=== PATIENT | female | born 1985 | race Caucasian/White ===

== ENCOUNTER 2019-02-15 13:26 | Inpatient (IN) ==
[2019-02-15] MEDS ORDERED: LORazepam 1 MG TAB PO STA (13:51)
[2019-02-15 14:14] LABS: Basophils # (auto) 0.02 K/uL (0-0.2); Basophils % (auto) 0.2 %; Eosinophils # (auto) 0.05 K/uL (0-0.5); Eosinophils % (auto) 0.6 %; Hematocrit (blood only) 37.8 % (37-47); Hemoglobin 12.7 g/dL (12.0-16.0); Immature Granulocytes # (auto) 0.02 K/uL (0.00-0.02); Immature Granulocytes % (auto) 0.2 %; Lymphocytes # (auto) 1.49 K/uL (1.2-3.4); Lymphocytes % (auto) 18.5 %; Mean Corpuscular Hgb Conc 33.6 g/dL (32-36); Mean Corpuscular Volume 96.9 fL (80-100); Mean Platelet Volume 10.5 fL (7.4-10.4); Monocytes # (auto) 0.57 K/uL (0.11-0.59); Monocytes % (auto) 7.1 %; Neutrophils # (auto) 5.92 K/uL (1.4-6.5); Neutrophils % (auto) 73.4 %; Platelet Count 227 K/uL (130-400); RDW Coefficient of Variation 13.7 % (11.5-14.5); RDW Standard Deviation 48.5 fL (36.4-46.3); White Blood Count 8.07 K/uL (4.8-10.8)
[2019-02-15 14:30] LABS: Albumin Level 3.9 gm/dl (3.4-5.0); BUN Creatinine Ratio 22.5 (10-20); Calcium 9.7 mg/dl (8.5-10.1); Creatinine Clr Calc Pharmacy 109.6 ml/min; Est GFR (African American) 133.5; Est GFR (Non-African American) 115.2; Potassium 3.7 mmol/L (3.5-5.1)
[2019-02-15 14:39] LABS: Pregnancy Test, Serum Negative (Negative)
[2019-02-15 14:40] LABS: Albumin Globulin Ratio 1.2 (0.9-2); Bilirubin,Total 0.3 mg/dl (0.2-1); Globulin 3.2 gm/dl (2.5-4.0); Total Protein 7.1 gm/dl (6.4-8.2)
[2019-02-15 14:41] LABS: Appearance Urine Turbid (Clear); Bacteria Urine Automated Negative (Negative); Bilirubin Urine Negative (Negative); Blood Urine Negative (Negative); Color Urine Dark Yellow; Epithelial Cell Urine Auto >30 /lpf (0-5); Glucose Urine UA Negative (Negative); Ketones Urine Trace (Negative); Leukocyte Esterase Urine Negative (Negative); Nitrite Urine Negative (Negative); Protein Urine Negative (Negative); Specific Gravity Urine 1.023 (1.000-1.030); Urobilinogen Urine Negative (Negative)
[2019-02-15 14:42] LABS: Acetaminophen < 2 ug/ml (10-30); Salicylate < 1.7 mg/dl (2.8-20)
[2019-02-15 14:59] LABS: RBC Urine Automated 0-4 /hpf (0-4)
[2019-02-15 15:06] LABS: Amphetamines+Metham, Urine Neg (Neg); Barbiturates, Urine Neg (Neg); Benzodiazepine, Urine Neg (Neg); Cocaine, Urine Neg (Neg); MDMA (Ecstacy), Urine Neg (Neg); Methadone, Urine Neg (Neg); Opiate, Urine Neg (Neg); Phencyclidine, Urine Neg (Neg)
--- NOTE | 2019-02-15 15:20 | Emergency Department Note ---
Entered by Pilar Gan acting as a scribe for History of Present Illness General Chief complaint: Mental Health Evaluation Stated complaint: MHMR,NEEDS TO SEE SOMEONE IN MENTAL Source: patient Mode of arrival: ambulatory Limitations: no limitations History of Present Illness Onset (ago): day(s) 3 Location: head Radiation: non-radiation Pain Consistency: + constant Maximum Pain Intensity: 8 Relieved By: + none Exacerbated By: + none Treatments prior to arrival: none The patient is a 33 year old female who presents to the ED with complaints of needing a mental health evaluation. She states that she has experienced worsening depression recently. She states she has experienced racing thoughts and a "mental fog", which prompted her to come here to the ED. The patient admits to a history of schizoaffective disorder and bipolar 1. She admits to a history of cutting and states she has been treated inpatient at a mental health facility several times in the past. She is a current smoker. She notes she does hear voices. Home Medications Home Medications Medication Instructions Recorded Confirmed Type aripiprazole [Abilify] 10 mg PO DAILY 02/15/19 02/15/19 History clozapine [Clozaril] 200 mg PO BID 02/15/19 02/15/19 History mirtazapine [Remeron] 15 mg PO HS 02/15/19 02/15/19 History Allergies Allergy/AdvReac Type Severity Reaction Status Date / Time azithromycin [From Zithromax] Allergy Mild Rash Verified 02/15/19 14:06 mivacurium AdvReac Mild YEAST Unverified 09/25/09 04:15 INFECTION Past Med/Surg History Medical History Bipolar 1 disorder Schizoaffective disorder Social History Preferred Language: Moroccan Communication Ability: Effective Social Worker Clinical Required: No Beliefs That Will Affect Care: None Feels Safe at Home: Yes Smoking Status: Current every day smoker Tobacco Type: cigarettes Review of Systems See HPI for pertinent positives & negatives. and A total of 10 systems reviewed and were otherwise negative Physical Exam Vital Signs Vital Signs - 24 hr 02/15/19 13:30 Temperature 36.8 C Temperature Source Oral Sepsis Recent Fever Within 48 Hours No Sepsis Action Taken by Nursing No Action Required Pulse Rhythm Regular Pulse Strength Normal Respiratory Rate 16 Respiratory Effort / Characteristics Non-Labored Respiratory Depth Normal Respiratory Pattern Regular Blood Pressure 114/74 Blood Pressure Mean 87 Blood Pressure Position Sitting Pulse Oximetry 100 Oxygen Delivery Method Room Air GENERAL: Patient is awake, alert, somewhat anxious appearing and guarded. EYES: The conjunctivae are clear. The pupils are round and reactive. EARS, NOSE, MOUTH AND THROAT: The nose is without any evidence of any deformity. Mucous membranes are moist.Tongue is midline NECK: The neck is nontender and supple. RESPIRATORY: Normal respiratory effort is noted. There is no evidence of wheezing rhonchi or rales to auscultation. CARDIOVASCULAR: Regular rate and rhythm noted. There no murmurs rubs or gallops normal S1 normal S2 GASTROINTESTINAL: The abdomen is soft. Bowel sounds are present in all quadrants. Abdomen is nontender. MUSCULOSKELETAL/EXTREMITIES: There is no evidence of gross deformity. Full range of motion is noted in the hips and shoulders. SKIN: There is no obvious evidence of any rash. There are no petechiae, pallor or cyanosis noted. NEUROLOGIC: Patient is awake alert and oriented x3. PSYCHIATRIC: The patient is anxious appearing, makes poor eye contact for most of the evaluation, very vague with her description of her suicidal ideation. Course 1346: The patient was evaluated in room A5 and a complete history and physical were performed. 1615: Psychiatric Case Management informed me the patient will be further evaluated upstairs by [facility]. Administered Medications Acetaminophen (Tylenol) 650 mg PO Q4H PRN PRN Reason: Headache or Minor Fever Stop: 03/17/19 16:04 Last Admin: 02/15/19 17:04 Dose: 650 mg Documented by: [id number] [facility] Stop: 03/18/19 08:59 Last Admin: 02/16/19 08:17 Dose: 10 mg Documented by: [id number] Mirtazapine (Remeron) 15 mg PO [facility] Stop: 03/17/19 20:59 Last Admin: 02/15/19 21:27 Dose: 15 mg Documented by: [id number] Nicotine (Nicoderm Cq) [facility] Stop: 03/17/19 16:14 Last Admin: 02/16/19 08:17 Dose: 21 mg Documented by: [id number] Admin: 02/15/19 18:15 Dose: Not Given Documented by: [id number] Paliperidone (Invega) 6 mg PO DAILY MIKAELA Stop: 03/18/19 08:59 Last Admin: 02/16/19 08:17 Dose: 6 mg Documented by: [id number] Trihexyphenidyl HCl (Trihexyphenidyl Hcl) 5 mg PO QAM MIKAELA Stop: 03/18/19 08:59 Last Admin: 02/16/19 08:17 Dose: 5 mg Documented by: [id number] Discontinued Medications Diphenhydramine HCl (Benadryl Capsule) 25 mg PO NOW ONE Stop: 02/15/19 16:58 Last Admin: 02/15/19 18:13 Dose: 25 mg Documented by: [id number] Lorazepam (Ativan) 0.5 mg PO NOW STA Stop: 02/15/19 13:52 Last Admin: 02/15/19 14:03 Dose: 0.5 mg Documented by: [id number] Paliperidone (Invega) 1.5 mg PO NOW ONE Stop: 02/15/19 16:56 Last Admin: 02/15/19 18:13 Dose: 1.5 mg Documented by: [id number] Medical Decision Making Differential Diagnosis Differential: Mood Disorder, Overdose, Infectious, Electrolyte Abnormality, Cardiac, Hepatic, Endocrine, Toxicologic, Neurologic, amongst other pathologies Entertained. Medical Records Attestation: I reviewed the patient's medical records. Home Medications Current Medication List: was personally reviewed by me Laboratory Data Attestation: I reviewed the patient's lab results. Result diagrams: 02/15/19 13:59 02/15/19 13:59 Lab Results 02/15/19 02/15/19 02/15/19 Range/Units 13:59 13:59 13:59 WBC 8.07 (4.8-10.8) K/uL RBC 3.90 L (4.2-5.4) M/uL Hgb 12.7 (12.0-16.0) g/dL Hct 37.8 (37-47) % MCV 96.9 (80-100) fL MCH 32.6 (25-34) pg MCHC 33.6 (32-36) g/dL RDW Std Deviation 48.5 H (36.4-46.3) fL RDW Coeff of Alesha 13.7 (11.5-14.5) % Plt Count 227 (130-400) K/uL MPV 10.5 H (7.4-10.4) fL Immature Gran % (Auto) 0.2 % Neut % (Auto) 73.4 % Lymph % (Auto) 18.5 % Adams % (Auto) 7.1 % Eos % (Auto) 0.6 % Baso % (Auto) 0.2 % Immature Gran # (Auto) 0.02 (0.00-0.02) K/uL Neut # (Auto) 5.92 (1.4-6.5) K/uL Lymph # (Auto) 1.49 (1.2-3.4) K/uL Adams # (Auto) 0.57 (0.11-0.59) K/uL Eos # (Auto) 0.05 (0-0.5) K/uL Baso # (Auto) 0.02 (0-0.2) K/uL Sodium 143 (136-145) mmol/L Potassium 3.7 (3.5-5.1) mmol/L Chloride 107 (98-107) mmol/L Carbon Dioxide 29 (21-32) mmol/L Anion Gap 7.0 (3-11) BUN 16 (7-18) mg/dl Creatinine 0.69 (0.6-1.2) mg/dl Est Cr Clr Drug Dosing 109.6 ml/min Est GFR ( Amer) 133.5 Est GFR (Non-Af Amer) 115.2 BUN/Creatinine Ratio 22.5 H (10-20) Glucose 94 (70-99) mg/dl Calcium 9.7 (8.5-10.1) mg/dl Total Bilirubin 0.3 (0.2-1) mg/dl AST 13 L (15-37) U/L ALT 36 (12-78) U/L Alkaline Phosphatase 80 (45-117) U/L Total Protein 7.1 (6.4-8.2) gm/dl Albumin 3.9 (3.4-5.0) gm/dl Globulin 3.2 (2.5-4.0) gm/dl Albumin/Globulin Ratio 1.2 (0.9-2) TSH 0.679 (0.300-4.500) uIu/ml HCG, Qual (Negative) Urine Color Urine Appearance (Clear) Urine pH (4.5-7.5) Ur Specific [place] (1.000-1.030) Urine Protein (Negative) Urine Glucose (UA) (Negative) Urine Ketones (Negative) Urine Blood (Negative) Urine Nitrite (Negative) Urine Bilirubin (Negative) Urine Urobilinogen (Negative) Ur Leukocyte Esterase (Negative) Urine WBC (Auto) (0-5) /hpf Urine RBC (Auto) (0-4) /hpf U Hyaline Cast (Auto) (0-5) /lpf U Epithel Cells (Auto) (0-5) /lpf Urine Bacteria (Auto) (Negative) Salicylates < 1.7 L (2.8-20) mg/dl Urine Opiates Screen (Neg) Ur Methadone, Qual (Neg) Acetaminophen < 2 L (10-30) ug/ml Urine Barbiturates (Neg) Ur Phencyclidine (PCP) (Neg) U Amphetamin/Meth Scrn (Neg) MDMA (Ecstasy) Screen (Neg) U Benzodiazepines Scrn (Neg) Ur Cocaine Metabolite (Neg) U Marijuana (THC) Screen (Neg) Ethyl Alcohol mg/dL (0-3) mg/dl 02/15/19 02/15/19 02/15/19 Range/Units 13:59 13:59 14:15 WBC (4.8-10.8) K/uL RBC (4.2-5.4) M/uL Hgb (12.0-16.0) g/dL Hct (37-47) % MCV (80-100) fL MCH (25-34) pg MCHC (32-36) g/dL RDW Std Deviation (36.4-46.3) fL RDW Coeff of Alesha (11.5-14.5) % Plt Count (130-400) K/uL MPV (7.4-10.4) fL Immature Gran % (Auto) % Neut % (Auto) % Lymph % (Auto) % Adams % (Auto) % Eos % (Auto) % Baso % (Auto) % Immature Gran # (Auto) (0.00-0.02) K/uL Neut # (Auto) (1.4-6.5) K/uL Lymph # (Auto) (1.2-3.4) K/uL Adams # (Auto) (0.11-0.59) K/uL Eos # (Auto) (0-0.5) K/uL Baso # (Auto) (0-0.2) K/uL Sodium (136-145) mmol/L Potassium (3.5-5.1) mmol/L Chloride (98-107) mmol/L Carbon Dioxide (21-32) mmol/L Anion Gap (3-11) BUN (7-18) mg/dl Creatinine (0.6-1.2) mg/dl Est Cr Clr Drug Dosing ml/min Est GFR ( Amer) Est GFR (Non-Af Amer) BUN/Creatinine Ratio (10-20) Glucose (70-99) mg/dl Calcium (8.5-10.1) mg/dl Total Bilirubin (0.2-1) mg/dl AST (15-37) U/L ALT (12-78) U/L Alkaline Phosphatase (45-117) U/L Total Protein (6.4-8.2) gm/dl Albumin (3.4-5.0) gm/dl Globulin (2.5-4.0) gm/dl Albumin/Globulin Ratio (0.9-2) TSH (0.300-4.500) uIu/ml HCG, Qual Negative (Negative) Urine Color Urine Appearance (Clear) Urine pH (4.5-7.5) Ur Specific [place] (1.000-1.030) Urine Protein (Negative) Urine Glucose (UA) (Negative) Urine Ketones (Negative) Urine Blood (Negative) Urine Nitrite (Negative) Urine Bilirubin (Negative) Urine Urobilinogen (Negative) Ur Leukocyte Esterase (Negative) Urine WBC (Auto) (0-5) /hpf Urine RBC (Auto) (0-4) /hpf U Hyaline Cast (Auto) (0-5) /lpf U Epithel Cells (Auto) (0-5) /lpf Urine Bacteria (Auto) (Negative) Salicylates (2.8-20) mg/dl Urine Opiates Screen Neg (Neg) Ur Methadone, Qual Neg (Neg) Acetaminophen (10-30) ug/ml Urine Barbiturates Neg (Neg) Ur Phencyclidine (PCP) Neg (Neg) U Amphetamin/Meth Scrn Neg (Neg) MDMA (Ecstasy) Screen Neg (Neg) U Benzodiazepines Scrn Neg (Neg) Ur Cocaine Metabolite Neg (Neg) U Marijuana (THC) Screen Neg (Neg) Ethyl Alcohol mg/dL < 3.0 (0-3) mg/dl 02/15/19 Range/Units 14:15 WBC (4.8-10.8) K/uL RBC (4.2-5.4) M/uL Hgb (12.0-16.0) g/dL Hct (37-47) % MCV (80-100) fL MCH (25-34) pg MCHC (32-36) g/dL RDW Std Deviation (36.4-46.3) fL RDW Coeff of Alesha (11.5-14.5) % Plt Count (130-400) K/uL MPV (7.4-10.4) fL Immature Gran % (Auto) % Neut % (Auto) % Lymph % (Auto) % Adams % (Auto) % Eos % (Auto) % Baso % (Auto) % Immature Gran # (Auto) (0.00-0.02) K/uL Neut # (Auto) (1.4-6.5) K/uL Lymph # (Auto) (1.2-3.4) K/uL Adams # (Auto) (0.11-0.59) K/uL Eos # (Auto) (0-0.5) K/uL Baso # (Auto) (0-0.2) K/uL Sodium (136-145) mmol/L Potassium (3.5-5.1) mmol/L Chloride (98-107) mmol/L Carbon Dioxide (21-32) mmol/L Anion Gap (3-11) BUN (7-18) mg/dl Creatinine (0.6-1.2) mg/dl Est Cr Clr Drug Dosing ml/min Est GFR ( Amer) Est GFR (Non-Af Amer) BUN/Creatinine Ratio (10-20) Glucose (70-99) mg/dl Calcium (8.5-10.1) mg/dl Total Bilirubin (0.2-1) mg/dl AST (15-37) U/L ALT (12-78) U/L Alkaline Phosphatase (45-117) U/L Total Protein (6.4-8.2) gm/dl Albumin (3.4-5.0) gm/dl Globulin (2.5-4.0) gm/dl Albumin/Globulin Ratio (0.9-2) TSH (0.300-4.500) uIu/ml HCG, Qual (Negative) Urine Color Dark Yellow Urine Appearance Turbid A (Clear) Urine pH 7.0 (4.5-7.5) Ur Specific [place] 1.023 (1.000-1.030) Urine Protein Negative (Negative) Urine Glucose (UA) Negative (Negative) Urine Ketones Trace H (Negative) Urine Blood Negative (Negative) Urine Nitrite Negative (Negative) Urine Bilirubin Negative (Negative) Urine Urobilinogen Negative (Negative) Ur Leukocyte Esterase Negative (Negative) Urine WBC (Auto) 1-5 (0-5) /hpf Urine RBC (Auto) 0-4 (0-4) /hpf U Hyaline Cast (Auto) 5-10 H (0-5) /lpf U Epithel Cells (Auto) >30 H (0-5) /lpf Urine Bacteria (Auto) Negative (Negative) Salicylates (2.8-20) mg/dl Urine Opiates Screen (Neg) Ur Methadone, Qual (Neg) Acetaminophen (10-30) ug/ml Urine Barbiturates (Neg) Ur Phencyclidine (PCP) (Neg) U Amphetamin/Meth Scrn (Neg) MDMA (Ecstasy) Screen (Neg) U Benzodiazepines Scrn (Neg) Ur Cocaine Metabolite (Neg) U Marijuana (THC) Screen (Neg) Ethyl Alcohol mg/dL (0-3) mg/dl Blood Pressure Blood Pressure Findings: Normal blood pressure Blood Pressure Disposition: did not require urgent referral MDM Narrative The patient is a 33-year-old female who presented to the emergency department f or an evaluation of mental health problems. The patient was very vague about her symptoms but did voice some suicidal ideation. The patient was medically cleared in the emergency department. She was evaluated by the mental health family caseworker. She was felt to be a good candidate for inpatient management and the patient was agreeable to this. She was evaluated by 3 S. and was ultimately accepted for inpatient management on 3 S. The patient was treated with Ativan in the emergency department. She was feeling much better on subsequent reevaluation. Impression & Plan Suicidal ideation, Schizoaffective disorder, Depression Discharge Plan Visit Data *Final* Discharge Date/Time: 02/15/19 16:15 Chief Complaint: Mental Health Evaluation Stated Complaint: MHMR,NEEDS TO SEE SOMEONE IN MENTAL ED Provider: Parveen Low Discharge Problem: Suicidal ideation, Schizoaffective disorder, Depression Patient Disposition: Admitted As Inpatient Discharge Instructions Interventions: ED Discharge Assessment Last Done: 02/15/19 16:15 The scribe's documentation has been prepared under my direction and personally reviewed by me in its entirety. I confirm that the note above accurately reflects all work, treatment, procedures, and medical decision making performed by me.
[2019-02-15] MEDS ORDERED: MAGNESIUM HYDROXIDE SUSP 30 ML UDC PO PRN (16:05)
[2019-02-15] MEDS ORDERED: ACETAMINOPHEN 325 MG TAB PO PRN (16:05)
[2019-02-15] MEDS ORDERED: BISMUTH SUBSALICYLATE PER ML OMNICELL CHARGE PO PRN (16:05)
[2019-02-15] MEDS ORDERED: SODIUM CHLORIDE 0.65% NA SOLN 45 ML (OCEAN) PRN (16:05)
[2019-02-15] MEDS ORDERED: ALUMINUM/MAGNESIUM SUSP 30 ML UDC PO PRN (16:05)
[2019-02-15 16:20] VITALS: O2SAT 98
[2019-02-15] MEDS ORDERED: PALIPERIDONE 1.5 MG TABCR PO ONE (16:55)
--- NOTE | 2019-02-15 17:28 | History & Physical ---
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 BUN/Creatinine Ratio Glucose Calcium Total Bilirubin AST ALT Alkaline Phosphatase Total Protein Albumin Globulin Albumin/Globulin Ratio TSH HCG, Qual Urine Color Dark Yellow Urine Appearance Turbid A Urine pH 7.0 Ur Specific [place] 1.023 Urine Protein Negative Urine Glucose (UA) Negative Urine Ketones Trace H Urine Blood Negative Urine Nitrite Negative Urine Bilirubin Negative Urine Urobilinogen Negative Ur Leukocyte Esterase Negative Urine WBC (Auto) 1-5 Urine RBC (Auto) 0-4 U Hyaline Cast (Auto) 5-10 H U Epithel Cells (Auto) >30 H Urine Bacteria (Auto) Negative Salicylates Urine Opiates Screen Ur Methadone, Qual Acetaminophen Urine Barbiturates Ur Phencyclidine (PCP) U Amphetamin/Meth Scrn MDMA (Ecstasy) Screen U Benzodiazepines Scrn Ur Cocaine Metabolite U Marijuana (THC) Screen Ethyl Alcohol mg/dL Current Inpatient Medications Current Inpatient Medications: Current Inpatient Medications Acetaminophen (Tylenol) 650 mg PO Q4H PRN PRN Reason: Headache or Minor Fever Stop: 03/17/19 16:04 Al Hydrox/Mg Hydrox/Simethicone (Maalox) 30 ml PO Q4H PRN PRN Reason: GI Upset Stop: 03/17/19 16:04 Aripiprazole (Abilify) 10 mg PO QAM MIKAELA Stop: 03/18/19 08:59 Bismuth Subsalicylate (Kaopectate) 15 ml PO PRN PRN PRN Reason: Loose Stool Stop: 03/17/19 16:04 Diphenhydramine HCl (Benadryl Capsule) 25 mg PO NOW ONE Stop: 02/15/19 16:58 Hydroxyzine HCl (Vistaril) 25 mg PO Q4H PRN PRN Reason: Anxiety Stop: 03/17/19 16:04 Hydroxyzine HCl (Vistaril) 50 mg PO HSZ PRN PRN Reason: Insomnia Stop: 03/17/19 16:04 Magnesium Hydroxide (Milk Of Magnesia) 30 ml PO DAILY PRN PRN Reason: Heartburn Stop: 03/17/19 16:04 Mirtazapine (Remeron) 15 mg PO HS MIKAELA Stop: 03/17/19 20:59 Nicotine (Nicoderm Cq) 21 mg TD QAM MIKAELA Stop: 03/17/19 16:14 Nicotine Polacrilex (Nicorette 2mg) 1 piece MT UD PRN PRN Reason: Nicotine Withdrawal Stop: 03/17/19 16:04 Paliperidone (Invega) 1.5 mg PO NOW ONE Stop: 02/15/19 16:56 Paliperidone (Invega) 6 mg PO DAILY MIKAELA Stop: 03/18/19 08:59 Sodium Chloride ([place] Nasal) 1 - 2 sprays NA PRN PRN PRN Reason: Nasal Dryness/Congestion Stop: 03/17/19 16:04 CPT Code CPT Code Initial Hospital Care: 17413
[2019-02-15] MEDS: NICOTINE 21 MG/24 HR TDSY TD SCH (18:15)
[2019-02-15] MEDS ORDERED: cloZAPine 100 MG TAB PO SCH (21:00)
[2019-02-15] MEDS: MIRTAZAPINE TAB 15 MG TAB PO SCH (21:27)
[2019-02-16 07:47] LABS: Glucose Fasting 98 mg/dl (70-99)
[2019-02-16 07:53] LABS: Chol HDL Ratio 3; Cholesterol 162 mg/dl (0-200); HDL Cholesterol 64 mg/dl; LDL Cholesterol Calculated 81 mg/dl; Triglycerides 86 mg/dl (0-150); VLDL Cholesterol 17 mg/dl
[2019-02-16] MEDS: TRIHEXYPHENIDYL HCL 5 MG TAB PO SCH (08:17)
[2019-02-16] MEDS: PALIPERIDONE 3 MG TABCR PO SCH (08:17)
[2019-02-16] MEDS: NICOTINE 21 MG/24 HR TDSY TD SCH (08:17)
[2019-02-16] MEDS: ARIPiprazole 10 MG TAB PO SCH (08:17)
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
[2019-02-16] MEDS: MIRTAZAPINE TAB 15 MG TAB PO SCH (21:16)
[2019-02-17] MEDS ORDERED: LORazepam 1 MG TAB PO STA (01:13)
[2019-02-17] MEDS ORDERED: LORazepam 1 MG TAB ONE (01:17)
[2019-02-17] MEDS: ARIPiprazole 10 MG TAB PO SCH (07:45)
[2019-02-17] MEDS: PALIPERIDONE 3 MG TABCR PO SCH (07:45)
[2019-02-17] MEDS: TRIHEXYPHENIDYL HCL 5 MG TAB PO SCH (07:45)
[2019-02-17] MEDS: NICOTINE 21 MG/24 HR TDSY TD SCH (07:46)
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
[2019-02-17] MEDS ORDERED: ARIPiprazole 10 MG TAB PO SCH (09:00)
[2019-02-17] MEDS: NICOTINE POLACRILEX 2 MG GUM MT PRN (14:09)
[2019-02-17] MEDS: MIRTAZAPINE TAB 15 MG TAB PO SCH (20:28)
[2019-02-18 06:55] VITALS: BP 112/75; TEMP 98.1
[2019-02-18] MEDS: PALIPERIDONE 3 MG TABCR PO SCH (08:39)
[2019-02-18] MEDS: NICOTINE POLACRILEX 2 MG GUM MT PRN (08:43)
[2019-02-18] MEDS: NICOTINE 21 MG/24 HR TDSY TD SCH (08:47)
[2019-02-18] MEDS ORDERED: ARIPiprazole 10 MG TAB PO SCH (09:00)
[2019-02-18] MEDS: TRIHEXYPHENIDYL HCL 5 MG TAB PO SCH (09:02)
--- NOTE | 2019-02-18 09:45 | Discharge Summary ---
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 Service: Psychiatry Other Pending Studies at Discharge: No
[2019-02-18 10:09] VITALS: PULSE 98
== END 2019-02-18 10:43 | disposition home or self-care (01) | DRG 885 ==
LOC: ED 13:26 → SUATTDRO 16:05 → 3S 16:05